=== PATIENT | female | born 2000 | race Native Hawaiian/Other Pacific Islander ===

== ENCOUNTER 2022-08-27 18:25 | Emergency (ER) | payer OTHER ==
[2022-08-27] MEDS ORDERED: SODIUM CHLORIDE 0.9% 1,000 ML IV STA (18:45)
[2022-08-27] MEDS ORDERED: ONDANSETRON 4 MG/2 ML VIAL IVP STA (18:51)
[2022-08-27] MEDS ORDERED: HYDROmorphone 1 MG/ML CARPUJECT IVP STA (18:51)
[2022-08-27] MEDS ORDERED: KETOROLAC 15 MG/ML VIAL IVP STA (18:51)
--- NOTE | 2022-08-27 18:53 | ED Physician Documentation ---
PD HPI NVD - Stated complaint Stated Complaint: FEVER,VOMIT,DIARRHEA - Chief complaint Chief Complaint: Abd Pain - History obtained from History obtained from: Patient - Additonal information Additional information: Previously healthy young woman became acutely ill this morning with severe body aches especially her ears and low back, mild congestion and mild cough, nausea, vomiting and diarrhea without significant abdominal pain. No sick contacts. No recent travel. She was fine yesterday. PD PAST MEDICAL HISTORY - Allergies Allergies/Adverse Reactions: Allergies Allergy/AdvReac Type Severity Reaction Status Date / Time amoxicillin Allergy Rash Verified 08/27/22 18:42 Penicillins Allergy Rash Verified 08/27/22 18:42 Sulfa (Sulfonamide Allergy Anaphylaxis Verified 08/27/22 18:42 Antibiotics) PD ED PE NORMAL - Vitals Vital signs reviewed: Yes - General General: Alert and oriented X 3, Other (She appears uncomfortable but not septic) - HEENT HEENT: Pharynx benign, Other (Sclerosis of the TMs without significant otitis) - Neck Neck: Supple, no meningeal sign, No bony TTP - Cardiac Cardiac: Other (Tachycardic but regular without murmur) - Respiratory Respiratory: No respiratory distress, Clear bilaterally - Abdomen Abdomen: Soft, Non tender - Back Back: No CVA TTP, No spinal TTP - Derm Derm: Normal color, Warm and dry - Extremities Extremities: No edema, No calf tenderness / cord - Neuro Neuro: Alert and oriented X 3, Normal speech Results - Vitals Vitals: Vital Signs - 24 hr 08/27/22 08/27/22 08/27/22 18:39 19:08 19:30 Temperature 37.3 C 39.0 C H Heart Rate 115 H 98 101 H Respiratory 32 H 22 15 Rate Blood Pressure 87/60 L 125/106 H 128/78 O2 Saturation 100 100 100 08/27/22 08/27/22 20:00 20:30 Temperature Heart Rate 93 90 Respiratory 25 H 15 Rate Blood Pressure 108/61 113/62 O2 Saturation 100 96 Oxygen O2 Source Room air - Labs Labs: Laboratory Tests 08/27/22 08/27/22 08/27/22 18:56 18:56 18:56 WBC 8.6 RBC 5.58 H Hgb 15.1 Hct 45.1 MCV 80.8 L MCH 27.1 MCHC 33.5 RDW 13.1 Plt Count 297 MPV 9.9 Neut # (Auto) 6.9 H Lymph # (Auto) 1.1 L Wilkinson # (Auto) 0.5 Eos # (Auto) 0.0 Baso # (Auto) 0.0 Absolute Nucleated RBC 0.00 Nucleated RBC % 0.0 VBG pH VBG pCO2 VBG pO2 VBG HCO3 VBG Total CO2 VBG O2 Saturation VBG Base Excess Sodium 132 L Potassium 3.3 L Chloride 98 L Carbon Dioxide 21 Anion Gap 13.0 BUN 18 Creatinine 0.9 Estimated GFR (MDRD) 78 L Glucose 95 Lactic Acid 2.1 Calcium 8.4 L Total Bilirubin 0.7 AST 21 ALT 21 Alkaline Phosphatase 48 Total Protein 7.3 Albumin 3.6 Globulin 3.7 Albumin/Globulin Ratio 1.0 Urine Color Urine Clarity Urine pH Ur Specific [place] Urine Protein Urine Glucose (UA) Urine Ketones Urine Occult Blood Urine Nitrite Urine Bilirubin Urine Urobilinogen Ur Leukocyte Esterase Urine RBC Urine WBC Ur Squamous Epith Cells Urine Bacteria Urine Culture Comments Urine HCG, Qual Nasal Adenovirus (PCR) Nasal B. parapertussis DNA (PCR) Nasal Coronavir 229E PCR Nasal Coronavir HKU1 PCR Nasal Coronavir NL63 PCR Nasal Coronavir OC43 PCR Nasal Enterovir/Rhinovir PCR Nasal Influenza B PCR Nasal Influenza A PCR Nasal Parainfluen 1 PCR Nasal Parainfluen 2 PCR Nasal Parainfluen 3 PCR Nasal Parainfluen 4 PCR Nasal RSV (PCR) Nasal B.pertussis DNA PCR Nasal C.pneumoniae (PCR) Eric Human Metapneumo PCR Nasal M.pneumoniae (PCR) Nasal SARS-CoV-2 (PCR) 08/27/22 08/27/22 08/27/22 18:56 19:15 19:15 WBC RBC Hgb Hct MCV MCH MCHC RDW Plt Count MPV Neut # (Auto) Lymph # (Auto) Wilkinson # (Auto) Eos # (Auto) Baso # (Auto) Absolute Nucleated RBC Nucleated RBC % VBG pH 7.555 H VBG pCO2 28.5 L VBG pO2 18.4 L VBG HCO3 24.7 VBG Total CO2 25.5 VBG O2 Saturation 42.8 L VBG Base Excess 3.6 H Sodium Potassium Chloride Carbon Dioxide Anion Gap BUN Creatinine Estimated GFR (MDRD) Glucose Lactic Acid Calcium Total Bilirubin AST ALT Alkaline Phosphatase Total Protein Albumin Globulin Albumin/Globulin Ratio Urine Color YELLOW Urine Clarity HAZY Urine pH 7.0 Ur Specific [place] 1.015 Urine Protein NEGATIVE Urine Glucose (UA) NEGATIVE Urine Ketones TRACE Urine Occult Blood MODERATE H Urine Nitrite NEGATIVE Urine Bilirubin NEGATIVE Urine Urobilinogen 0.2 (NORMAL) Ur Leukocyte Esterase NEGATIVE Urine RBC 6-10 H Urine WBC 0-3 Ur Squamous Epith Cells FEW Squamous Urine Bacteria None Seen Urine Culture Comments NOT INDICATED Urine HCG, Qual NEGATIVE Nasal Adenovirus (PCR) Nasal B. parapertussis DNA (PCR) Nasal Coronavir 229E PCR Nasal Coronavir HKU1 PCR Nasal Coronavir NL63 PCR Nasal Coronavir OC43 PCR Nasal Enterovir/Rhinovir PCR Nasal Influenza B PCR Nasal Influenza A PCR Nasal Parainfluen 1 PCR Nasal Parainfluen 2 PCR Nasal Parainfluen 3 PCR Nasal Parainfluen 4 PCR Nasal RSV (PCR) Nasal B.pertussis DNA PCR Nasal C.pneumoniae (PCR) Eric Human Metapneumo PCR Nasal M.pneumoniae (PCR) Nasal SARS-CoV-2 (PCR) 08/27/22 19:26 WBC RBC Hgb Hct MCV MCH MCHC RDW Plt Count MPV Neut # (Auto) Lymph # (Auto) Wilkinson # (Auto) Eos # (Auto) Baso # (Auto) Absolute Nucleated RBC Nucleated RBC % VBG pH VBG pCO2 VBG pO2 VBG HCO3 VBG Total CO2 VBG O2 Saturation VBG Base Excess Sodium Potassium Chloride Carbon Dioxide Anion Gap BUN Creatinine Estimated GFR (MDRD) Glucose Lactic Acid Calcium Total Bilirubin AST ALT Alkaline Phosphatase Total Protein Albumin Globulin Albumin/Globulin Ratio Urine Color Urine Clarity Urine pH Ur Specific [place] Urine Protein Urine Glucose (UA) Urine Ketones Urine Occult Blood Urine Nitrite Urine Bilirubin Urine Urobilinogen Ur Leukocyte Esterase Urine RBC Urine WBC Ur Squamous Epith Cells Urine Bacteria Urine Culture Comments Urine HCG, Qual Nasal Adenovirus (PCR) NOT DETECTED Nasal B. parapertussis DNA (PCR) NOT DETECTED Nasal Coronavir 229E PCR NOT DETECTED Nasal Coronavir HKU1 PCR NOT DETECTED Nasal Coronavir NL63 PCR NOT DETECTED Nasal Coronavir OC43 PCR NOT DETECTED Nasal Enterovir/Rhinovir PCR NOT DETECTED Nasal Influenza B PCR NOT DETECTED Nasal Influenza A PCR NOT DETECTED Nasal Parainfluen 1 PCR NOT DETECTED Nasal Parainfluen 2 PCR NOT DETECTED Nasal Parainfluen 3 PCR NOT DETECTED Nasal Parainfluen 4 PCR NOT DETECTED Nasal RSV (PCR) NOT DETECTED Nasal B.pertussis DNA PCR NOT DETECTED Nasal C.pneumoniae (PCR) NOT DETECTED Eric Human Metapneumo PCR NOT DETECTED Nasal M.pneumoniae (PCR) NOT DETECTED Nasal SARS-CoV-2 (PCR) NOT DETECTED PD Medical Decision Making - ED course ED course: This is a 21-year-old healthy woman who Became acutely ill today with fever, GI symptoms and body aches. On examination she appears well but is panicky, this is corroborated by a venous blood gas showing a respiratory alkalosis. Her initial blood pressure was low, but after the initial reading her blood pressure was normal. Given the initially low blood pressure though there was a concern for sepsis and this was screen for with labs. Her white count is normal. CBC is otherwise unremarkable. CMP notable for [place] mild hypokalemia and hyponatremia. There is no lactic acidosis. Urinalysis has trace blood but otherwise negative. [employer] panel is negative. Reexamination at 8:45 PM she is feeling much better. She still complains of prominent backache. She has no meningismus. No sinus tenderness. Lungs remain clear. Vital signs are normal with normal blood pressure no tachycardia. Suspect she has a viral syndrome but close return precautions were given and blood cultures are pending. Departure - Departure Disposition: 01 Home, Self Care Clinical Impression: Fever Qualifiers: Fever type: unspecified Qualified Code(s): R50.9 - Fever, unspecified Condition: Good Record reviewed to determine appropriate education?: Yes Instructions: ED Fever Control Comments: Suspect you have an undifferentiated viral syndrome based on your labs and symptoms. Return Wednesday if not better, sooner for new or worsening symptoms. You can take Tylenol and/or ibuprofen as needed for aches and pains. Drink plenty of fluids. Forms: Activity restrictions
[2022-08-27 19:02] LABS: BASOPHILS % (AUTO) 0.1 %; EOSINOPHILS % (AUTO) 0.1 %; HCT - HEMATOCRIT 45.1 % (37.0-47.0); HGB - HEMOGLOBIN 15.1 g/dL (12.0-16.0); LYMPHOCYTES # (AUTO) 1.1 10^3/uL (1.5-3.5); LYMPHOCYTES % (AUTO) 12.7 %; MEAN CORPUSCULAR HEMOGLOBIN 27.1 pg (27.0-31.0); MEAN CORPUSCULAR HGB CONC 33.5 g/dL (32.0-36.0); MEAN CORPUSCULAR VOLUME 80.8 fL (81.0-99.0); MEAN PLATELET VOLUME 9.9 fL (7.9-10.8); MONOCYTES # (AUTO) 0.5 10^3/uL (0.0-1.0); MONOCYTES % (AUTO) 6.2 %; NEUTROPHILS # (AUTO) 6.9 10^3/uL (1.5-6.6); NEUTROPHILS % (AUTO) 80.4 %; PLT - PLATELET COUNT 297 10^3/uL (130-450); RED BLOOD COUNT 5.58 10^6/uL (4.20-5.40); RED CELL DISTRIBUTION WIDTH 13.1 % (12.0-15.0); WHITE BLOOD COUNT 8.6 x10^3/uL (4.8-10.8)
[2022-08-27 19:05] LABS: VBG BASE EXCESS 3.6 mmol/L (-2 - +2); VBG HCO3 24.7 mmol/L (23-28); VBG PCO2 28.5 mmHg (41-51); VBG PH 7.555 (7.31-7.41); VBG PO2 18.4 mmHg (25-47); VBG TOTAL CO2 25.5 mmol/L (24-29)
[2022-08-27 19:06] LABS: VBG OXYGEN SATURATION 42.8 % (60-80)
[2022-08-27 19:14] LABS: ALBUMIN 3.6 g/dL (3.2-5.5); BILIRUBIN,TOTAL 0.7 mg/dL (0.2-1.0); CALCIUM 8.4 mg/dL (8.5-10.3); CREATININE 0.9 mg/dL (0.4-1.0); POTASSIUM 3.3 mmol/L (3.5-5.0); TOTAL PROTEIN 7.3 g/dL (6.7-8.2)
[2022-08-27 19:15] LABS: LACTIC ACID, VENOUS 2.1 mmol/L (0.5-2.2)
[2022-08-27 19:57] LABS: BILIRUBIN,URINE NEGATIVE (NEGATIVE); GLUCOSE, URINE (UA) NEGATIVE (NEGATIVE); KETONES,URINE (UA) TRACE mg/dL (NEGATIVE); LEUKOCYTE ESTERASE, URINE NEGATIVE (NEGATIVE); NITRITE,URINE NEGATIVE (NEGATIVE); OCCULT BLOOD,URINE MODERATE (NEGATIVE); PROTEIN,URINE NEGATIVE (NEGATIVE); UROBILINOGEN,URINE 0.2 (NORMAL) E.U./dL (NORMAL)
[2022-08-27 19:58] LABS: CLARITY,URINE HAZY (CLEAR)
[2022-08-27 20:01] LABS: HCG UR QUAL NEGATIVE
[2022-08-27] MEDS ORDERED: IBUPROFEN 800 MG TABLET PO STA (20:08)
[2022-08-27] MEDS ORDERED: LORazepam 2 MG/ML VIAL IVP STA (20:08)
[2022-08-27 20:10] LABS: SQUAMOUS EPITHELIAL CELL,UR FEW Squamous (<= Few); WBC,URINE 0-3 /HPF (0-5)
[2022-08-27 20:11] LABS: BACTERIA,URINE None Seen /HPF (None Seen)
[2022-08-27 20:33] VITALS: BP 113/62
[2022-08-27 20:40] LABS: B. PARAPERTUSSIS- RESP PCR PAN NOT DETECTED; B. PERTUSSIS- RESP PCR PANEL NOT DETECTED; C. PNEUMONIAE- RESP PCR PANEL NOT DETECTED; CORONAVIRUS 229E-RESP PCR NOT DETECTED; CORONAVIRUS HKU1-RESP PCR NOT DETECTED; CORONAVIRUS NL63-RESP PCR NOT DETECTED; CORONAVIRUS OC43-RESP PCR NOT DETECTED; HUMAN METAPNEUMOVIRUS NOT DETECTED; INFLUENZA A- RESP PCR PANEL NOT DETECTED; INFLUENZA B - RESP PCR PANEL NOT DETECTED; M. PNEUMONIAE- RESP PCR PANEL NOT DETECTED; PARAINFLUENZA VIRUS 1 NOT DETECTED; PARAINFLUENZA VIRUS 2 NOT DETECTED; PARAINFLUENZA VIRUS 3 NOT DETECTED; PARAINFLUENZA VIRUS 4 NOT DETECTED; RHINOVIRUS/ENTEROVIRUS NOT DETECTED; RSV- RESP PCR PANEL NOT DETECTED; SARS-CoV-2 -RESP PCR PANEL NOT DETECTED
[2022-08-27] MEDS ORDERED: HYDROcod/ACET 5/325 Prepack 4 PO STA (20:49)
== END 2022-08-27 21:03 | disposition home or self-care (01) ==
LOC: ED 18:25
DX: R50.9 Fever, unspecified (principal); F41.0 Panic disorder [episodic paroxysmal anxiety]; Z20.822 Contact with and (suspected) exposure to COVID-19
CPT/HCPCS: 36415; 80053; 81001; 81025; 82803; 83605; 85025; 87040; 87633; 96361; 96374; 96375; 99283; 99285; A9270; J1170; J2060; 87086

== ENCOUNTER 2022-10-16 07:22 | Outpatient (CLI) | payer OTHER ==
--- NOTE | 2022-10-16 10:50 | MRI Report ---
PROCEDURE: LUMBAR SPINE WO INDICATIONS: LUMBAR RADICULOPATHY TECHNIQUE: Noncontrast sagittal T1 spin echo and T2 fast echo, sagittal STIR, axial T1 and T2 fast spin echo thr ough the lumbar spine. In cases with scoliosis, additional coronal T2 fast spin echo may be performe d. COMPARISON: None. FINDINGS: Image quality: Excellent. Alignment and Curvature: There is normal bony alignment. Bone Marrow: Marrow is of normal overall signal. No acute vertebral body compression fractures. Spinal Cord: Conus medullaris terminates at the L1 level. Visualized cord demonstrates normal signa l and size. Paraspinous Soft Tissues: No paravertebral masses. T12-L1: Normal in appearance. L1-L2: Normal in appearance. L2-L3: Normal in appearance. L3-L4: Broad-based disc bulge. L4-L5: Broad-based disc bulge. L5-S1: Tiny central protrusion. IMPRESSION: Broad-based disc bulge at L3-4 and L4-5, and tiny central protrusion at L5-S1. No spinal canal or leona ral foraminal narrowing. Reviewed by: Sammy James on 10/16/2022 10:49 AM PDT Approved by: Sammy James on 10/16/2022 10:49 AM PDT Station ID: [id number]
--- NOTE | 2022-10-16 12:37 | MRI Report ---
PROCEDURE: THORACIC SPINE WO INDICATIONS: LUMBAR RADICULOPATHY TECHNIQUE: Noncontrast sagittal T1 spine echo and T2 fast spin echo, sagittal STIR, axial T1 and T2 fast spin ec ho through the thoracic spine. COMPARISON: Correlation is made with the accompanying lumbar spine MRI, 10/16/2022. FINDINGS: Image quality: Excellent. Alignment and Curvature: There is normal bony alignment. Bone Marrow: Marrow is of normal overall signal. No acute vertebral body compression fractures. Spinal Cord: Visualized spinal cord is normal in size and signal. Paraspinous Soft Tissues: No paravertebral masses. Miscellaneous: On axial images, central canal and foramina appear widely patent at all scanned level s. IMPRESSION: Normal thoracic spine MRI. Reviewed by: Mahesh Walker MD on 10/16/2022 11:36 AM [facility]ANT[facility] Approved by: Mahesh Walker MD on 10/16/2022 11:36 AM CHANTAL Station ID: [id number]
== END 2022-10-16 07:23 | disposition home or self-care (01) ==
LOC: DI 07:22
PROVIDERS: ATTEND Student in an Organized Health Care Education/Training Program
DX: M51.16 Intervertebral disc disorders with radiculopathy, lumbar region (principal); M51.27 Other intervertebral disc displacement, lumbosacral region